=== PATIENT | male | born 1985 | race Two or more races ===

== ENCOUNTER 2019-03-21 01:33 | Emergency (ER) | payer SELFPAY ==
[~2019-03-21] VITALS: Ht 165.1 cm; Wt 70.3 kg
--- NOTE | 2019-03-21 01:50 | NUR ---
ED Nurse Note: Pt ambulated to ED from home c/o 05/14 abdominal pain x2days, A&Ox4, VSS. Denies trauma or hx of surgery
[2019-03-21] MEDS ORDERED: HYDROmorphone 1mg/ml Carpuject IVP ONE (02:00)
[2019-03-21 02:07] LABS: BASOPHILS % (AUTO) 0.7 % (0.0-2.0); EOSINOPHILS % (AUTO) 1.1 % (0.0-3.0); HEMATOCRIT 48.2 % (42.0-52.0); LYMPHOCYTES % (AUTO) 38.8 % (20.0-45.0); MEAN CORPUSCULAR VOLUME 89 FL (80-99); NEUTROPHILS % (AUTO) 53.4 % (45.0-75.0); PLATELET COUNT 282 K/UL (150-450); RED BLOOD COUNT 5.43 M/UL (4.70-6.10); RED CELL DISTRIBUTION WIDTH 10.6 % (11.6-14.8); WHITE BLOOD COUNT 13.9 K/UL (4.8-10.8)
--- NOTE | 2019-03-21 02:07 | Emergency Room Report ---
History of Present Illness General Chief Complaint: Abdominal Pain Source: Patient Present Illness HPI This is a 33-year-old male with no past medical history. He presents with chief complaint of abdominal pain. Onset for 2 days. Pain is supraumbilical. Got worse tonight. Now pain is 10 out of 10. Sharp and crampy. No radiation. Has not taken anything for the pain. Has nausea but no vomiting. Has diarrhea for the last 3 days. No fever chills but no trauma. Ate dinner without any problem. Allergies: Coded Allergies: No Known Allergies (Unverified , 03/21/19) Patient History Past Medical History: see triage record, old chart reviewed Past Surgical History: none Pertinent Family History: none Social History: Denies: smoking Immunizations: other Reviewed Nursing Documentation: PMH: Agreed; PSxH: Agreed Nursing Documentation-PMH Past Medical History: No Stated History Review of Systems Eye: Denies: eye pain, blurred vision ENT: Denies: ear pain, nose congestion, throat swelling Respiratory: Denies: cough, shortness of breath Cardiovascular: Denies: chest pain, palpitations Gastrointestinal: Reports: abdominal pain, nausea; Denies: diarrhea, vomiting Musculoskeletal: Denies: back pain, joint pain Skin: Denies: rash Neurological: Denies: headache, numbness Endocrine: Denies: increased thirst, increased urine Hematologic/Lymphatic: Denies: easy bruising All Other Systems: negative except mentioned in HPI Physical Exam Vital Signs Date Time Temp Pulse Resp B/P (MAP) Pulse Ox O2 Delivery O2 Flow Rate FiO2 03/21/19 01:46 98.2 114 16 163/77 (105) 97 Room Air Vitals with high blood pressure Sp02 EP Interpretation: reviewed, normal General Appearance: well appearing, no apparent distress, alert Head: normocephalic, atraumatic Eyes: bilateral eye PERRL, bilateral eye EOMI ENT: hearing grossly normal, normal pharynx Neck: full range of motion, supple, no meningismus Respiratory: chest non-tender, lungs clear, normal breath sounds Cardiovascular #1: regular rate, rhythm, no murmur Gastrointestinal: normal bowel sounds, no mass, no organomegaly, no bruit, non- distended, tenderness - Supra umbilical area. Musculoskeletal: back normal, gait/station normal, normal range of motion Psychiatric: mood/affect normal Medical Decision Making Diagnostic Impression: Primary Impression: Abdominal pain Qualified Codes: R10.84 - Generalized abdominal pain Additional Impressions: Diarrhea Qualified Codes: R19.7 - Diarrhea, unspecified Hypokalemia ER Course Patient presents with no pain. There is no evidence of any obstruction or acute abdomen. CT scan showed descending colonic diverticulosis and spasm. No definitive inflammatory stranding to suggest diverticulitis. Could be early however. With his diarrhea for the last 3 days and the pain, I will treat him for infectious diarrhea. CT/MRI/US Diagnostic Results CT/MRI/US Diagnostic Results : Imaging Test Ordered: CT abdomen and pelvis Impression Read by radiologist. Descending colonic diverticulosis and spasm. Last Vital Signs Date Time Temp Pulse Resp B/P (MAP) Pulse Ox O2 Delivery O2 Flow Rate FiO2 03/21/19 01:46 98.2 114 16 163/77 (105) 97 Room Air Disposition: HOME, SELF-CARE Condition: Improved Scripts Hydrocodone/Acetaminophen 5-325* (HYDROCODONE/ACETAMINOPHEN 5-325*) 1 Each Tablet 1 TAB ORAL Q6H PRN for For Pain, #15 TAB 0 Refills Prov: Ramesh Bae MD 03/21/19 Metronidazole* (FLAGYL*) 500 Mg Tablet 500 MG ORAL BID, #14 TAB Prov: Ramesh Bae MD 03/21/19 Ciprofloxacin Hcl* (CIPROFLOXACIN HCL*) 500 Mg Tablet 500 MG ORAL Q12H, #14 TAB 0 Refills Prov: Ramesh Bae MD 03/21/19 Additional Instructions: Follow-up with your doctor in 2 to 3 days for recheck. Return if worse. Ramesh Bae MD Mar 21, 2019 02:07
[2019-03-21 02:17] LABS: ANION GAP 12 mmol/L (5-15); BLOOD UREA NITROGEN 9 mg/dL (7-18); CALCIUM 8.9 MG/DL (8.5-10.1); CARBON DIOXIDE 25 MMOL/L (21-32); CHLORIDE 105 MMOL/L (98-107); POTASSIUM 2.9 MMOL/L (3.5-5.1); SODIUM 142 MMOL/L (136-145)
[2019-03-21 02:19] VITALS: BP 163/77
[2019-03-21 02:21] LABS: ALANINE AMINOTRANSFERASE 27 U/L (12-78); ALBUMIN 4.1 G/DL (3.4-5.0); ALKALINE PHOSPHATASE 133 U/L (46-116); ASPARTATE AMINO TRANSFERASE 21 U/L (15-37); BILIRUBIN,TOTAL 0.6 MG/DL (0.2-1.0)
--- NOTE | 2019-03-21 02:42 | Diagnostic Imaging Report ---
EXAM: CT Abdomen and Pelvis Without Intravenous Contrast CLINICAL HISTORY: ABD PAIN TECHNIQUE: Axial computed tomography images of the abdomen and pelvis without intravenous contrast. CTDI is 12.69 mGy and DLP is 621 mGy-cm. One or more of the following dose reduction techniques were used: automated exposure control, adjustment of the mA and/or kV according to patient size, use of iterative reconstruction technique. COMPARISON: none FINDINGS: Lung bases: Unremarkable. No mass. No consolidation. ABDOMEN: Liver: Unremarkable. Gallbladder and bile ducts: Unremarkable. No calcified stones. No ductal dilation. Pancreas: Unremarkable. No ductal dilation. Spleen: Unremarkable. No splenomegaly. Adrenals: Unremarkable. No mass. Kidneys and ureters: Unremarkable. No obstructing stones. No hydronephrosis. Stomach and bowel: There is descending colonic diverticulosis and spasm. No definite inflammatory stranding to suggest diverticulitis or acute colitis. No obstruction. PELVIS: Appendix: No findings to suggest acute appendicitis. Bladder: Unremarkable. No stones. Reproductive: Unremarkable as visualized. ABDOMEN and PELVIS: Intraperitoneal space: Unremarkable. No free air. No significant fluid collection. Bones/joints: No acute fracture. No dislocation. Soft tissues: Unremarkable. Vasculature: Unremarkable. No abdominal aortic aneurysm. Lymph nodes: Unremarkable. No enlarged lymph nodes. IMPRESSION: There is descending colonic diverticulosis and spasm. No definite inflammatory stranding to suggest diverticulitis or acute colitis. Findings are nonspecific and could represent mild or early descending colitis in the appropriate clinical context but is not confidently established. Serial imaging with abdominal radiographs could be helpful if clinically warranted. Otherwise unremarkable exam.
[2019-03-21] MEDS ORDERED: LORazepam Inj 2mg/ml 1ml IV ONE (03:15)
--- NOTE | 2019-03-21 04:00 | NUR ---
ED Nurse Note: Pt resting in bed with eyes closed, no signs of distress, IV fluids infusing per order. Will continue to monitor
[2019-03-21] MEDS ORDERED: Morphine Sulfate 4mg/ml Inj (IV USE ONLY) IVP ONE (04:15)
[2019-03-21] MEDS ORDERED: Ciprofloxacin 500mg tab ORAL ONE (04:15)
[2019-03-21 04:20] LABS: APPEARANCE,URINE CLEAR; BILIRUBIN, URINE NEGATIVE (NEGATIVE); COLOR,URINE PALE YELLOW; GLUCOSE, URINE (UA) NEGATIVE (NEGATIVE); KETONES,URINE NEGATIVE (NEGATIVE); LEUKOCYTE ESTERASE ,URINE NEGATIVE (NEGATIVE); NITRITE,URINE NEGATIVE (NEGATIVE); PH,URINE 5 (4.5-8.0); PROTEIN,URINE NEGATIVE (NEGATIVE); UROBILINOGEN,URINE NORMAL MG/DL (0.0-1.0)
[2019-03-21] MEDS ORDERED: METRONIDAZOLE500 MG ORAL (04:54)
[2019-03-21] MEDS ORDERED: HYDROCODON-ACE1 EA15 ORAL (04:54)
[2019-03-21] MEDS ORDERED: CIPROFLOXACIN500 M2 ORAL (04:54)
[2019-03-21 05:25] VITALS: BP 145/80
--- NOTE | 2019-03-21 05:25 | NUR ---
ER DISCHARGE NOTE: Patient is cleared to be discharged per ERMD, pt is aox4, on room air, with stable vital signs. pt was given dc and prescription instructions, pt was able to verbalize understanding, pt id band and iv site removed without complications. pt is able to ambulate with steady gait. pt took all belongings.
== END 2019-03-21 05:25 | disposition home or self-care (01) ==
LOC: EMR 01:59
DX: R10.84 Generalized abdominal pain (principal); R19.7 Diarrhea, unspecified; E87.6 Hypokalemia
CPT/HCPCS: 36415; 74176; 80053; 80307; 81003; 83690; 85025; 96361; 96365; 96375; 99284; J1170; J2270; J2405; J8499

== ENCOUNTER 2019-09-15 21:33 | Emergency (ER) | payer SELFPAY ==
[~2019-09-15] VITALS: Ht 165.1 cm; Wt 72.6 kg
[~2019-09-15 21:33] MED LIST: CIPROFLOXACIN500 M2 ORAL; HYDROCODON-ACE1 EA15 ORAL; METRONIDAZOLE500 MG ORAL
[2019-09-15 21:40] VITALS: BP 135/96
--- NOTE | 2019-09-15 21:40 | NUR ---
ED Nurse Note: Pt walked into ED from home for c/o chest pain that has been intermittent for the past three days. Pt states pain is 10/10 and sharp in nature. Pt also c/o chills, weakness, headache, dysuria and body aches over the past couple of days. Pt is aaox4, no respiratory distress noted. Pt connected to vehicle monitor technician. Will continue to monitor.
--- NOTE | 2019-09-15 22:10 | Emergency Room Report ---
History of Present Illness General Chief Complaint: Chest Pain Source: Patient Present Illness HPI Disclaimer: Please note that this report is being documented using DRAGON technology. This can lead to erroneous entry secondary to incorrect interpretation by the dictating instrument. HPI: 34-year-old male presents for evaluation of chest pain. Symptoms began 3 days ago. He notes a sharp stabbing midsternal chest pain that does not radiate. He is exacerbated by bending and twisting motions and denies any obvious relieving factors. It has been constant since onset. Sometimes it is a dull ache other times it is a sharp pain. Notes some shortness of breath but denies any cough, recent fever, chills, URI symptoms such as sore throat, nasal congestion or any nausea, vomiting, diarrhea. He has a history anxiety but states this is different. Denies any drug, alcohol use. Is not a smoker. No family history of early heart disease. Denies any hypertension, hyperlipidemia , diabetes. Denies lower extremity pain or swelling, recent travel, immobilization or history of coagulopathy. PMH: Anxiety PSH: Viewed Allergies: Denies Social Hx: Denies tobacco, drug or alcohol use Allergies: Coded Allergies: No Known Allergies (Unverified , 03/21/19) Nursing Documentation-PMH Past Medical History: No Stated History Review of Systems All Other Systems: negative except mentioned in HPI Physical Exam Vital Signs Date Time Temp Pulse Resp B/P (MAP) Pulse Ox O2 Delivery O2 Flow Rate FiO2 09/15/19 21:37 99.0 99 22 135/96 (109) 100 Room Air General: Awake and alert, no acute distress, anxious appearing HEENT: NC/AT. EOMI. injected sclera bilaterally. Moist mucous membranes Neck: Supple, trachea midline Chest Wall: Tender palpation over the sternum. No crepitus or deformity Cardiovascular: Borderline tachycardic. S1 and S2 normal. No murmur appreciated Resp: Normal work of breathing. No cough, wheezing or crackles appreciated Abdomen: Abdomen is soft, nondistended. Nontender Skin: Intact. No abrasions, laceration or rash over the exposed skin MSK: Normal tone and bulk. Moving all extremities. No obvious deformity. No lower extremity edema Neuro: Awake and alert. Mentating appropriately. Medical Decision Making Diagnostic Impression: Primary Impression: Chest pain ER Course 34-year-old male with no reported medical history presents for evaluation of 3 days sharp midsternal chest pain. Differential includes was not limited to angina, ACS, costochondritis, bronchitis, pneumonia, pleurisy, viral syndrome, GERD, esophageal spasm to name a few. We will start a broad metabolic infectious and cardiac work-up. EKG obtained on arrival shows borderline sinus tachycardia with first-degree AV block but is otherwise unremarkable without obvious signs of ischemia. Laboratory Tests Test 09/15/19 22:00 09/15/19 22:20 White Blood Count 9.1 K/UL (4.8-10.8) Red Blood Count 5.16 M/UL (4.70-6.10) Hemoglobin 16.0 G/DL (14.2-18.0) Hematocrit 46.3 % (42.0-52.0) Mean Corpuscular Volume 90 FL (80-99) Mean Corpuscular Hemoglobin 31.1 PG (27.0-31.0) H Mean Corpuscular Hemoglobin Concent 34.6 G/DL (32.0-36.0) Red Cell Distribution Width 11.9 % (11.6-14.8) Platelet Count 207 K/UL (150-450) Mean Platelet Volume 8.8 FL (6.5-10.1) Neutrophils (%) (Auto) 51.4 % (45.0-75.0) Lymphocytes (%) (Auto) 38.5 % (20.0-45.0) Monocytes (%) (Auto) 8.4 % (1.0-10.0) Eosinophils (%) (Auto) 0.9 % (0.0-3.0) Basophils (%) (Auto) 0.9 % (0.0-2.0) Sodium Level 141 MMOL/L (136-145) Potassium Level 3.4 MMOL/L (3.5-5.1) L Chloride Level 105 MMOL/L (98-107) Carbon Dioxide Level 27 MMOL/L (21-32) Anion Gap 9 mmol/L (5-15) Blood Urea Nitrogen 15 mg/dL (7-18) Creatinine 0.9 MG/DL (0.55-1.30) Estimate Glomerular Filtration Rate > 60 mL/min (>60) Glucose Level 139 MG/DL (74-106) H Calcium Level 9.1 MG/DL (8.5-10.1) Total Bilirubin 0.4 MG/DL (0.2-1.0) Aspartate Amino Transferase (AST) 23 U/L (15-37) Alanine Aminotransferase (ALT) 51 U/L (12-78) Alkaline Phosphatase 112 U/L (46-116) Troponin I 0.000 ng/mL (0.000-0.056) Total Protein 8.1 G/DL (6.4-8.2) Albumin 4.3 G/DL (3.4-5.0) Globulin 3.8 g/dL Albumin/Globulin Ratio 1.1 (1.0-2.7) Serum Alcohol < 3 mg/dL Urine Color Pale yellow Urine Appearance Clear Urine pH 6.5 (4.5-8.0) Urine Specific [place] 1.015 (1.005-1.035) Urine Protein Negative (NEGATIVE) Urine Glucose (UA) Negative (NEGATIVE) Urine Ketones Negative (NEGATIVE) Urine Blood Negative (NEGATIVE) Urine Nitrite Negative (NEGATIVE) Urine Bilirubin Negative (NEGATIVE) Urine Urobilinogen 4 MG/DL (0.0-1.0) H Urine Leukocyte Esterase Negative (NEGATIVE) Urine Opiates Screen Negative (NEGATIVE) Urine Barbiturates Screen Negative (NEGATIVE) Phencyclidine (PCP) Screen Negative (NEGATIVE) Urine Amphetamines Screen Negative (NEGATIVE) Urine Benzodiazepines Screen Negative (NEGATIVE) Urine Cocaine Screen Negative (NEGATIVE) Urine Marijuana (THC) Screen Negative (NEGATIVE) EKG Diagnostic Results EKG Time: 21:44 Rate: normal ST Segments: no acute changes Other Impression Borderline tachycardic, normal axis, normal intervals, no ST segment changes. Rhythm Strip Diag. Results Rhythm Strip Time: 21:44 EP Interpretation: yes Rate: 90s Rhythm: NSR Chest X-Ray Diagnostic Results Chest X-Ray Diagnostic Results : Chest X-Ray Ordered: Yes # of Views/Limited/Complete: 1 View Indication: Chest Pain EP Interpretation: Yes Interpretation: no consolidation, no effusion, no pneumothorax, no acute cardiopulmonary disease Impression: No acute disease Electronically Signed by: Electronically signed by Dr. Lester Siddiqui Reevaluation Time: 23:16 Last Vital Signs Date Time Temp Pulse Resp B/P (MAP) Pulse Ox O2 Delivery O2 Flow Rate FiO2 09/15/19 21:37 99.0 99 22 135/96 (109) 100 Room Air Reevaluation Impression EKG is nonischemic and heart rate is improving. Chest x-ray unremarkable and does not show any signs of infiltrate or cardiomegaly. Labs including cardiac enzymes negative. Patient chest pain is reproducible and most consistent with musculoskeletal, pleurisy or possible early viral syndrome. Will discharge with symptomatic medications including NSAIDs. He should follow-up with his PMD for reevaluation and discussion of whether or not he requires further cardiology testing though at this point he is low risk for cardiac disease according to heart criteria. Patient be discharged home with PMD follow-up. Discussed reasons to return to the emergency department. He understands and agrees with this treatment plan. Disposition: HOME, SELF-CARE Condition: Stable Lester Siddiqui MD Sep 15, 2019 22:10
[2019-09-15] MEDS ORDERED: Ketorolac 30mg Inj IV ONE (22:15)
[2019-09-15 22:24] LABS: BASOPHILS % (AUTO) 0.9 % (0.0-2.0); EOSINOPHILS % (AUTO) 0.9 % (0.0-3.0); HEMATOCRIT 46.3 % (42.0-52.0); LYMPHOCYTES % (AUTO) 38.5 % (20.0-45.0); MEAN CORPUSCULAR VOLUME 90 FL (80-99); MONOCYTES % (AUTO) 8.4 % (1.0-10.0); NEUTROPHILS % (AUTO) 51.4 % (45.0-75.0); PLATELET COUNT 207 K/UL (150-450); RED BLOOD COUNT 5.16 M/UL (4.70-6.10); RED CELL DISTRIBUTION WIDTH 11.9 % (11.6-14.8); WHITE BLOOD COUNT 9.1 K/UL (4.8-10.8)
[2019-09-15 22:35] LABS: ANION GAP 9 mmol/L (5-15); BLOOD UREA NITROGEN 15 mg/dL (7-18); CALCIUM 9.1 MG/DL (8.5-10.1); CARBON DIOXIDE 27 MMOL/L (21-32); CHLORIDE 105 MMOL/L (98-107); CREATININE 0.9 MG/DL (0.55-1.30); POTASSIUM 3.4 MMOL/L (3.5-5.1); SODIUM 141 MMOL/L (136-145)
[2019-09-15 22:40] LABS: ALANINE AMINOTRANSFERASE 51 U/L (12-78); ALBUMIN 4.3 G/DL (3.4-5.0); ALBUMIN/GLOBULIN RATIO 1.1 (1.0-2.7); ALKALINE PHOSPHATASE 112 U/L (46-116); ASPARTATE AMINO TRANSFERASE 23 U/L (15-37); BILIRUBIN,TOTAL 0.4 MG/DL (0.2-1.0)
[2019-09-15 23:30] LABS: APPEARANCE,URINE CLEAR; BILIRUBIN, URINE NEGATIVE (NEGATIVE); GLUCOSE, URINE (UA) NEGATIVE (NEGATIVE); KETONES,URINE NEGATIVE (NEGATIVE); LEUKOCYTE ESTERASE ,URINE NEGATIVE (NEGATIVE); NITRITE,URINE NEGATIVE (NEGATIVE); PH,URINE 6.5 (4.5-8.0); PROTEIN,URINE NEGATIVE (NEGATIVE); UROBILINOGEN,URINE 4 MG/DL (0.0-1.0)
--- NOTE | 2019-09-15 23:30 | NUR ---
ED Nurse Note: Pt reports mild decrease in pain and feels a little bit better.
[2019-09-15 23:37] LABS: COLOR,URINE PALE YELLOW
[2019-09-15 23:40] VITALS: BP 147/72
--- NOTE | 2019-09-15 23:40 | NUR ---
ER DISCHARGE NOTE: Patient is cleared to be discharged per ERMD, pt is aox4, on room air, with stable vital signs. pt was given dc instructions, pt was able to verbalize understanding, pt id band and iv site removed without complications. pt is able to ambulate with steady gait. pt took all belongings.
--- NOTE | 2019-09-16 12:06 | Diagnostic Imaging Report ---
Indication: Chest pain Technique: One view of the chest Comparison: none Findings: Lungs and pleural spaces are clear. Heart size is normal. Impression: No acute process
== END 2019-09-15 23:40 | disposition home or self-care (01) ==
LOC: EMR 22:04
DX: R07.9 Chest pain, unspecified (principal); F41.9 Anxiety disorder, unspecified
CPT/HCPCS: 36415; 71045; 80053; 80307; 81003; 84484; 85025; 93005; 96361; 96374; 99284; G0480; J1885; J7030